=== PATIENT | female | born 1975 | race Caucasian/White ===

== ENCOUNTER 2017-07-07 12:30 | Emergency (ER) | payer SELFPAY ==
[2017-07-07 13:47] VITALS: BP 115/76
--- NOTE | 2017-07-07 13:50 | UC ---
Lower Extremity/Ankle HPI - HPI Summary HPI Summary: 42 yo female presents with right great toe pain. She tells me that she works as a superintendent of schools and was moving a metal chair. Dropped the chair and it landed on her right great toe. 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 Has been ambulating since , but with significant pain. Denies numbness/tingling. - History of Current Complaint Chief Complaint: UCLowerExtremity Stated Complaint: R FOOT INJURY Time Seen by Provider: 07/07/17 13:49 Hx Obtained From: Patient Hx Last Menstrual Period: 2 weeks ago Onset/Duration: Sudden Onset Severity Initially: Moderate Severity Currently: Mild Pain Intensity: 3 Pain Scale Used: 0-10 Numeric Aggravating Factor(s): Standing, Ambulation Able to Bear Weight: Yes - Allergies/Home Medications Allergies/Adverse Reactions: Allergies Allergy/AdvReac Type Severity Reaction Status Date / Time Sulfa (Sulfonamide Allergy Hives Verified 07/07/17 13:47 Antibiotics) Home Medications: Home Medications Ibuprofen 2 tab PO BID PRN 07/07/17 [History Confirmed 07/07/17] PMH/Surg Hx/FS Hx/Imm Hx - Additional Past Medical History Additional PMH: None Previously Healthy: Yes - Surgical History Surgical History: Yes Surgery Procedure, Year, and Place: Csection x2 - Family History Known Family History: Positive: None - Social History Occupation: Employed Full-time Lives: With Family Alcohol Use: Weekly Substance Use Type: None Smoking Status (MU): Never Smoked Tobacco - Immunization History Most Recent Tetanus Shot: UNK Review of Systems Constitutional: Negative Skin: Negative Respiratory: Negative Cardiovascular: Negative Neurovascular: Negative Musculoskeletal: Other: - Right great toe pain Neurological: Negative Psychological: Negative All Other Systems Reviewed And Are Negative: Yes Physical Exam - Summary Physical Exam Summary: GENERAL: NAD. WDWN. No pain distress. SKIN: No rashes, sores, lesions, or open wounds. NECK: Supple. Nontender. No lymphadenopathy. CHEST: No accessory muscle use. Breathing comfortably and in no distress. CV: RRR. Without m/r/g. Pulses intact PT and DP. Brisk cap refill. MSK: Right great toe: Unable to active flex due to pain. Mild edema and ecchymosis at DIP. No obvious bony deformities. NEURO: Alert. Sensations intact and symmetric B/L LEs PSYCH: Age appropriate behavior. Triage Information Reviewed: Yes Vital Signs: Initial Vital Signs Temp 98.7 F 07/07/17 13:43 Pulse 92 07/07/17 13:43 Resp 18 07/07/17 13:43 BP 115/76 07/07/17 13:43 Pulse Ox 100 07/07/17 13:43 Lower Extremity Course/Dx - Course Course Of Treatment: XR: IMPRESSION: NO ACUTE FRACTURE. Crutches and joellen tape. Ibuprofen prn. Weight bear as tolerated. - Differential Dx/Diagnosis Provider Diagnoses: Right great toe contusion Discharge - Sign-Out/Discharge Documenting (check all that apply): Discharge/Admit/Transfer - Discharge Plan Condition: Stable Disposition: HOME Patient Education Materials: Contusion in Adults (ED) Referrals: Sanjiv Rodas MD [Primary Care Provider] - Additional Instructions: If you develop a fever, shortness of breath, chest pain, new or worsening symptoms - please call your PCP or go to the ED. 1) Rest, Ice, and Elevate your foot/toe as much as possible over the next 2-3 days 2) Weight bearing as tolerated - you may use your crutches to keep off the toe 3) May take ibuprofen 600mg every 6-8hours as needed for pain. - Billing Disposition and Condition Condition: STABLE Disposition: HOME
--- NOTE | 2017-07-07 14:17 | RAD ---
INDICATION: Right great toe injury COMPARISON: None TECHNIQUE: AP, lateral, and oblique views were obtained. FINDINGS: There is no acute fracture. The joint spaces are preserved. There is soft tissue swelling about the great toe.. IMPRESSION: NO ACUTE FRACTURE.
== END 2017-07-07 14:48 | disposition home or self-care (01) ==
LOC: UCEAST 12:30
DX: S90.111A Contusion of right great toe without damage to nail, initial encounter (principal); W20.8XXA Other cause of strike by thrown, projected or falling object, initial encounter; Y93.89 Activity, other specified; Y92.219 Unspecified school as the place of occurrence of the external cause; Y99.0 Civilian activity done for income or pay; Z88.2 Allergy status to sulfonamides
CPT/HCPCS: 99213; G0463

== ENCOUNTER 2017-10-18 18:22 | Emergency (ER) | payer BC ==
--- NOTE | 2017-10-21 08:28 | UC ---
Discharge - Sign-Out/Discharge Documenting (check all that apply): Post-Discharge Follow Up All imaging exams completed and their final reports reviewed: No Studies - Discharge Plan Disposition: LEFT WITHOUT BEING SEEN Referrals: Sanjiv Rodas MD [Primary Care Provider] - - Billing Disposition and Condition Disposition: Left Without Being Seen
== END 2017-10-18 19:11 | disposition left against medical advice (07) ==
LOC: UCCORT 18:22
DX: N39.9 Disorder of urinary system, unspecified (principal); M54.9 Dorsalgia, unspecified; Z53.21 Procedure and treatment not carried out due to patient leaving prior to being seen by health care provider

== ENCOUNTER 2018-12-14 13:51 | Emergency (ER) | payer BC ==
[2018-12-14 16:08] VITALS: BP 123/73
--- NOTE | 2018-12-14 16:16 | UC ---
Complaint Female HPI - HPI Summary HPI Summary: Per grain processor: "Cloudy urine x2 days with pelvic pressure. Mild low back pain. Increased urination. " -menses nml -incredible urgency all night. has had UTIs before and sx were the same. no fever/schills/rigors. no blood. -no rashes. had some nausea. no vomiting - History Of Current Complaint Chief Complaint: UCGU Stated Complaint: URNIARY Time Seen by Provider: 12/14/18 16:08 Hx Last Menstrual Period: 11/2018 Pain Intensity: 0 - Allergies/Home Medications Allergies/Adverse Reactions: Allergies Allergy/AdvReac Type Severity Reaction Status Date / Time Sulfa (Sulfonamide Allergy Hives Verified 12/14/18 16:05 Antibiotics) Home Medications: Home Medications diPHENhydraMINE PO* [Benadryl PO 25 MG TAB*] 25 mg PO ONCE 12/14/18 [History Confirmed 12/14/18] PMH/Surg Hx/FS Hx/Imm Hx Previously Healthy: Yes - Surgical History Surgical History: Yes Surgery Procedure, Year, and Place: Csection x2 - Family History Known Family History: Positive: Non-Contributory - Social History Alcohol Use: None Substance Use Type: None Smoking Status (MU): Never Smoked Tobacco - Immunization History Most Recent Tetanus Shot: UNK Review of Systems All Other Systems Reviewed And Are Negative: Yes Constitutional: Positive: Negative Skin: Positive: Negative ENT: Positive: Negative Respiratory: Positive: Negative Cardiovascular: Positive: Negative Gastrointestinal: Positive: Abdominal Pain, Nausea. Negative: Vomiting, Diarrhea Genitourinary: Positive: Frequency, Urgency. Negative: Dysuria, Hematuria, Abnormal Bleeding Motor: Positive: Negative Neurovascular: Positive: Negative Musculoskeletal: Positive: Negative Neurological: Positive: Negative Psychological: Positive: Negative Is Patient Immunocompromised?: No Physical Exam Triage Information Reviewed: Yes Appearance: Well-Appearing, No Pain Distress, Well-Nourished - good historian Vital Signs: Initial Vital Signs Temp 99.3 F 12/14/18 16:03 Pulse 85 12/14/18 16:03 Resp 14 12/14/18 16:03 BP 123/73 12/14/18 16:03 Pulse Ox 100 12/14/18 16:03 Eye Exam: Normal ENT Exam: Normal Neck exam: Normal Respiratory Exam: Normal Respiratory: Positive: Lungs clear, Normal breath sounds, No respiratory distress, No accessory muscle use Cardiovascular Exam: Normal Cardiovascular: Positive: RRR Abdomen Description: Positive: No Organomegaly, Soft, Other: - mild suprapubic tensnderness. no RLQ or LLQ or umbilical tendernss.. Negative: CVA Tenderness ( R), CVA Tenderness (L), Distended, Guarding, McBurney's Point Tenderness, Peritoneal Signs Bowel Sounds: Positive: Present Musculoskeletal Exam: Normal Neurological Exam: Normal Psychological Exam: Normal Skin Exam: Normal Skin: Negative: Rashes Complaint Female Dx - Course Course Of Treatment: UA tr LE, SG 1.005 -she feels confident that this is a UTI as sx are simalr as beofre. UA is not impressive. will treta w/ macrobid x 7 days. I recommend she call in 3 days for results if she hasnt heard. I recommend that abx is dc'd if cx is neg. She hsould have evaluation w/ PCP and or [facility] if sx persist. - Differential Dx/Diagnosis Differential Diagnosis/HQI/PQRI: Renal Colic, Urinary Tract Infection Provider Diagnosis: Urinary frequency Discharge ED - Sign-Out/Discharge Documenting (check all that apply): Patient Departure All imaging exams completed and their final reports reviewed: No Studies - Discharge Plan Condition: Stable Disposition: HOME Prescriptions: Nitrofurantoin Monohyd/M-Cryst [Macrobid 100 mg Capsule] 100 mg PO BID 7 Days # 14 cap Patient Education Materials: Urinary Urgency and Frequency (DC) Referrals: Sanjiv Rodas MD [Primary Care Provider] - 1 Week Additional Instructions: The urine does not show an obvious infection, but will be sent out for a culture. You can call for results in a few days and stop the antibiotic if the culture is negative. Continue with fluids. You should be seen sooner if symptoms increase or persist. - Billing Disposition and Condition Condition: STABLE Disposition: Home
== END 2018-12-14 16:29 | disposition home or self-care (01) ==
LOC: UCCORT 13:51
DX: R35.0 Frequency of micturition (principal); M54.5 Low back pain; R39.15 Urgency of urination; R10.9 Unspecified abdominal pain; R11.0 Nausea; Z88.2 Allergy status to sulfonamides
CPT/HCPCS: 81003; 87077; 87086; 87186; 99212; G0463